=== PATIENT | male | born 1970 | race Caucasian/White ===

== ENCOUNTER 2021-01-11 06:52 | Day surgery (SDC) | payer OTHER ==
[~2021-01-11] VITALS: Ht 175.3 cm; Wt 72.6 kg
[2021-01-11 08:22] LABS: BASOPHILS 0.7 % (0-2); EOSINOPHILS 5.1 % (0-7); HEMATOCRIT 39.3 % (42.0-54.0); HEMOGLOBIN 13.1 g/dL (13.5-17.5); LYMPHOCYTES 23.5 % (15-50); MCH 30.5 pg (26.0-34.0); MCHC 33.2 g/dL (31.0-37.0); MCV 91.7 fL (80.0-100.0); MEAN PLATELET VOLUME 7.2 fL (7.4-10.4); MONOCYTES 15.2 % (2-11); NEUTROPHILS 55.5 % (40-80); PLATELET COUNT 213 10x3/uL (130-400); RBC 4.29 10x6/uL (4.20-6.10); WBC 6.3 10x3/uL (4.8-10.8)
[2021-01-11] MEDS ORDERED: ACETAMINOPHEN325 MG PO (08:30)
[2021-01-11] MEDS ORDERED: ASPIRIN EC325 MG (08:30)
[2021-01-11] MEDS ORDERED: LISINOPRIL10 MG PO (08:31)
[2021-01-11] MEDS ORDERED: EUCERIN ORIGIN500 ML TOPICAL (08:31)
[2021-01-11 08:32] LABS: CALC OSMOLALITY 270 mosm/kg (275-300); CALCIUM 8.9 mg/dL (8.5-10.1); CARBON DIOXIDE 31.1 mmol/L (21.0-32.0); CHLORIDE - SERUM 102 mmol/L (98-107); GLUCOSE 96 mg/dL (74-106); POTASSIUM - SERUM 4.1 mmol/L (3.5-5.1); SODIUM 136 mmol/L (136-145); UREA NITROGEN 10 mg/dL (7-18); eGFR NON AFRICAN AMERICAN 84 mL/min (90-120)
[2021-01-11] MEDS ORDERED: ALEVE220 MG (08:32)
[2021-01-11] MEDS ORDERED: PEPCID AC20 MG (08:33)
[2021-01-11] MEDS ORDERED: NEURONTIN 300300 MG PO (08:33)
[2021-01-11] MEDS ORDERED: MIRALAX17 GM PO (08:34)
[2021-01-11] MEDS ORDERED: NORTRIPTYLINE H50 MG PO (08:34)
[2021-01-11 09:09] VITALS: BP 106/61; Ht 175.3 cm; Wt 72.6 kg
--- NOTE | 2021-01-13 13:08 | HP ---
PATIENT: NICOL RODRIGUEZ MEDICAL RECORD: [id number] ACCOUNT: [id number] LOCATION:[facility] : 70 ADMISSION DATE: 01/11/21 PCP: RAMIRO CORONADO HISTORY AND PHYSICAL EXAMINATION CHIEF COMPLAINT: Anal lesion. HISTORY OF PRESENT ILLNESS: The patient has a left anal lesion that is going to require an excisional biopsy. There is a rough lesion located in the left anterior anus. I am going to recommend an excisional biopsy. ALLERGIES: Proton pump inhibitors. PAST MEDICAL AND SURGICAL HISTORY: BPH, hypertension, and Edgar's esophagus. MEDICATIONS: At the [facility] have been reviewed. PHYSICAL EXAMINATION: GENERAL: The patient does not appear acutely ill. He does appear chronically ill. VITAL SIGNS: Reviewed. EARS: External ears appear normal. Also, he is very hard of hearing. EYES: Extraocular movements are intact. NECK: Trachea midline. IMPRESSION: Left anal lesion. PLAN: The patient will be for excisional biopsy. TRANSINT:[id number] Voice Confirmation ID: [id number] DOCUMENT ID: [id number] AROLDO ROBBINS MD at 1308 CC: RAMIRO CORONADO [id number] DICTATION DATE: 01/11/21 1059 ULTRASOUND TECHNICIAN: 01/13/21 0051 [facility] 01/11/21 [id number] [place] [address]
--- NOTE | 2021-02-15 07:13 | OP ---
PATIENT NAME: NICOL RODRIGUEZ MEDICAL RECORD: [id number] :70 LOCATION:[facility] ADMISSION DATE: SURGEON: AVEL ROBBINS MD DATE OF OPERATION: 01/11/2021 PRINCIPAL DIAGNOSIS: Anal polyp. POSTOPERATIVE DIAGNOSIS: Anal polyp. PROCEDURE: Excisional biopsy of anal polyp with closure. SURGEON: Avel Robbins MD TRAFFIC COURT REFEREE: None. BLOOD LOSS: Minimal. ANESTHESIA: General. COMPLICATIONS: None. The risks, possible complications, and alternatives of the procedure were explained to the patient. He elects to proceed. The discussion specifically included, but was not limited to, bleeding requiring emergency reoperation, infection, the possible need for additional revisionary procedure or a more radical procedure in the future. OPERATIVE COURSE: The patient was conveyed to the operating room electively on 01/11/2021. General anesthesia was induced by the anesthesia staff. The patient was placed in the lithotomy position. The anus and perianal areas were sterilely prepped and draped. A well lubricated U-shaped anal retractors were placed. I examined the anus. I identified the polypoid lesion easily. Through the use of double curvilinear incisions, I excised the polypoid lesion with a margin of anal mucosa as well as anoderm. This was sent to pathology. Submucosal and subcutaneous flaps were created sharply. I then used a running intramucosal and intracuticular 3-0 Vicryl for the cutaneous closure. Gelfoam was packed within the anus and lower rectum. A combination of a steroid preparation and Marcaine were used to infiltrate the perianal tissues. Topical anesthetic cream was applied to the external hemorrhoids. The patient was then extubated and conveyed to post-anesthesia care unit where he was in stable condition. TRANSINT:[id number] Voice Confirmation ID: [id number] DOCUMENT ID: [id number] AVEL ROBBINS MD at 0713 CC: [id number] DICTATION DATE: 02/13/21 1453 MARKETING PROPOSAL COORDINATOR: 02/13/21 1631 [facility] 01/11/21 [facility] [address] [place] [address]
== END 2021-01-11 15:40 ==
LOC: D.OPS 06:52
PROVIDERS: Anesthesiology; ATTEND Surgery
DX: K62.0 Anal polyp (principal); N40.0 Benign prostatic hyperplasia without lower urinary tract symptoms; I10 Essential (primary) hypertension; K22.70 Barrett's esophagus without dysplasia